=== PATIENT | female | born 1980 | race Two or more races ===

== ENCOUNTER 2023-09-07 08:25 | Emergency (ER) | payer OTHER ==
[~2023-09-07] VITALS: Ht 162.6 cm; Wt 70.3 kg
[2023-09-07] MEDS ORDERED: IBUPROFEN 600 MG TABLET PO ONE (09:00)
[2023-09-07] MEDS ORDERED: IBUPROFEN 600 MG TABLET ONE (09:01)
[2023-09-07] MEDS ORDERED: IBUP-1953 PO (10:16)
[2023-09-07 10:32] VITALS: BP 131/66; TEMP 98.1; O2SAT 100
== END 2023-09-07 10:32 | disposition home or self-care (01) ==
LOC: ER 08:29
DX: S00.03XA Contusion of scalp, initial encounter (principal); W19.XXXA Unspecified fall, initial encounter; Y93.89 Activity, other specified; Y92.89 Other specified places as the place of occurrence of the external cause; Y99.8 Other external cause status
CPT/HCPCS: 70450-TC